=== PATIENT | male | born 1950 | race Caucasian/White ===

== ENCOUNTER 2021-02-11 15:08 | Outpatient (RCR) | payer BC, MEDICARE | END 2021-05-12 | disposition home or self-care (01) | LOC: ONC 15:08 | PROVIDERS: ATTEND Radiology Radiation Oncology | DX: C61 Malignant neoplasm of prostate (principal) | CPT/HCPCS: 99204 ==

== ENCOUNTER 2021-06-25 05:42 | Outpatient (CLI) | payer MEDICARE ==
[~2021-06-25] VITALS: Ht 180.3 cm; Wt 88.6 kg
[2021-06-25] MEDS ORDERED: AMIT100T2 PO (15:33)
[2021-06-25] MEDS ORDERED: TRZ50T PO (15:33)
[2021-06-25] MEDS ORDERED: ZINC50TA51 PO (15:33)
[2021-06-25] MEDS ORDERED: BICA50TA5 PO (15:33)
[2021-06-25] MEDS ORDERED: GUAI1TAB25 PO (15:33)
[2021-06-25] MEDS ORDERED: MELA5CAP PO (15:33)
[2021-06-25] MEDS ORDERED: ASPI-809 PO (15:33)
[2021-06-25] MEDS ORDERED: DIPH25CA79 PO (15:33)
== END 2021-06-25 16:08 | disposition home or self-care (01) ==
LOC: PREOP 05:42
PROVIDERS: ATTEND Specialist
DX: Z01.818 Encounter for other preprocedural examination (principal)

== ENCOUNTER 2021-07-09 11:46 | Day surgery (SDC) | payer BC, MEDICARE ==
[2021-07-09] VITALS (10 sets, daily range): BP systolic 120–149; BP diastolic 66–88
[~2021-07-09] VITALS: Ht 180.3 cm; Wt 88.6 kg
[~2021-07-09 11:46] MED LIST: AMIT100T2 PO; ASPI-809 PO; BICA50TA5 PO; DIPH25CA79 PO; GUAI1TAB25 PO; MELA5CAP PO; TRZ50T PO; ZINC50TA51 PO
--- NOTE | 2021-07-09 11:51 | Progress Note-Pre Operative ---
Pre-Operative Progress Note H&P Reviewed The H&P was reviewed, patient examined and no changes noted. Date Seen by Provider: Jul 09, 2021 Time Seen by Provider: 11:49 Date H&P Reviewed: Jul 09, 2021 Time H&P Reviewed: 11:49 Pre-Operative Diagnosis: Prostate cancer cT1c, PSA 8.49, [place] 7 (4+3) LAMINE OWENS MD Jul 09, 2021 11:50
--- NOTE | 2021-07-09 11:58 | Discharge Inst-Simple/Standard ---
Discharge Inst-Standard Reconcile Patient Problems Problems Reviewed?: Yes Discharge Medications New, Converted or Re-Newed RX: RX Given to Pt/Family Patient Instructions/Follow Up Plan of Care/Instructions/FU: 1) one month post implant scan at [facility] 08/06/21 at 10:30 a.m. 2) one month follow up with Dr. Martins 08/13/21 at 2:00 p.m. Activity as Tolerated: Yes Discharge Diet: No Restrictions Other Inst to Patient Please instruct patient on solis catheter care and removal of catheter at home on Wednesday07/14/21 in the morning. LAMINE OWENS MD Jul 09, 2021 11:58
[2021-07-09] MEDS ORDERED: ACET1TAB43 PO (12:08)
[2021-07-09] MEDS ORDERED: CIPR-226 PO (12:08)
[2021-07-09] MEDS ORDERED: LACTATED RINGERS 1,000 ML IV PRN (12:45)
[2021-07-09] MEDS ORDERED: BACITRACIN OINTMENT 28 GM TUBE ONE (13:50)
[2021-07-09] MEDS ORDERED: proPOfol 200 MG/20 ML (DIPRIVAN) VIAL IV ONE (13:55)
[2021-07-09] MEDS ORDERED: LIDOCAINE PF 2% 5 ML (XYLOCAINE) VIAL ONE (13:55)
[2021-07-09] MEDS ORDERED: SEVOFLURANE (ULTANE) 15 ML INHAL SOLN ONE ×2 (13:55→15:04)
[2021-07-09] MEDS ORDERED: fentaNYL INJ 100 MCG/2 ML AMP ONE (13:56)
[2021-07-09] MEDS ORDERED: ONDANSETRON 4 MG/2 ML (SDV) Z0FRAN ONE (13:56)
[2021-07-09] MEDS ORDERED: MIDAZOLAM 2 MG/2 ML (VERSED) VIAL ONE (13:56)
[2021-07-09] MEDS ORDERED: fentaNYL INJ 100 MCG/2 ML AMP IVP ONE (15:15)
[2021-07-09] MEDS ORDERED: ONDANSETRON 4 MG/2 ML (SDV) Z0FRAN IVP PRN (15:15)
[2021-07-09] MEDS ORDERED: morphine INJ 10 MG/ML 1ML (SYR OR VIAL) IVP ONE (15:15)
[2021-07-09] MEDS ORDERED: MEPERIDINE (DEMEROL) INJ 50 MG/ML IVP ONE (15:15)
--- NOTE | 2021-07-09 15:16 | Anesthesia-General Post-Op ---
General Patient Condition Mental Status/LOC: Same as Preop Cardiovascular: Satisfactory Nausea/Vomiting: Absent Respiratory: Satisfactory Pain: Controlled Complications: Absent Post Op Complications Complications None Follow Up Care/Instructions Patient Instructions None needed. Anesthesia/Patient Condition Patient Condition Patient is doing well, no complaints, stable vital signs, no apparent adverse anesthesia problems. No complications reported per nursing. RUSTY LEVIN CRNA Jul 09, 2021 15:16
--- NOTE | 2021-07-09 15:30 | Diagnostic Imaging Report ---
INDICATION: Fluoroscopy for brachytherapy. FINDINGS: Fluoroscopy was provided for Dr. Jimenez during prostate brachytherapy. 11 seconds of fluoroscopic time was utilized. A single image was obtained demonstrating radiation seed implants within the prostate gland. IMPRESSION: Fluoroscopy during brachytherapy. Dictated by: Dictated on workstation # [id number]
--- NOTE | 2021-07-09 16:08 | Progress Note-Post Operative ---
Post-Operative Progess Note Surgeon (s)/Piecer Up (s) Surgeon LAMINE OWENS MD Piecer Up: Stephany HAZEL MD Pre-Operative Diagnosis Prostate cancer cT1c, PSA 8.49, [place] 7 (4+3) Post-Operative Diagnosis Same as pre op Procedure & Operative Findings Date of Procedure 07/09/21 Procedure Performed/Findings (1) 100% Cesium 131 permanent prostate seed implant (2) Injection of biodegradable hydrogel prostate-rectal spacer utilizing the SpaceOAR system (3) Cystogram prostate volume 19.8 cc Anesthesia Type General Estimated Blood Loss Estimated blood loss (mL): Minimal Specimens/Packing Specimens Removed None Packing: N/A LAMINE OWENS MD Jul 09, 2021 16:08
== END 2021-07-09 17:33 | disposition home or self-care (01) ==
LOC: SDC 11:46
PROVIDERS: ATTEND Radiology Radiation Oncology
DX: C61 Malignant neoplasm of prostate (principal); G43.909 Migraine, unspecified, not intractable, without status migrainosus; Z79.899 Other long term (current) drug therapy
CPT/HCPCS: 55874; 76000; 76965; 77290; 77318; 77332; 77470; 77778; 87081; C1715 ×2; C1889; C2643

== ENCOUNTER 2021-08-06 10:06 | Outpatient (RCR) | payer MEDICARE ==
[~2021-08-06 10:06] MED LIST changes: +ACET1TAB43 PO; +CIPR-226 PO
== END 2021-09-10 | disposition home or self-care (01) ==
LOC: ONC 10:06
PROVIDERS: ATTEND Radiology Radiation Oncology
DX: Z51.0 Encounter for antineoplastic radiation therapy (principal); C61 Malignant neoplasm of prostate
CPT/HCPCS: 76873; 77290

== ENCOUNTER → 2021-09-22 | Outpatient (CLI) | payer MEDICARE | LOC: EDSTATUS 09-11 16:33 → ONC 11:15 | PROVIDERS: ATTEND Radiology Radiation Oncology | DX: C61 Malignant neoplasm of prostate (principal); Z98.890 Other specified postprocedural states; Z79.899 Other long term (current) drug therapy | CPT/HCPCS: 77295 ==

== ENCOUNTER 2022-01-08 09:49 | Outpatient (RCR) | payer MEDICARE | END 2022-01-26 | disposition home or self-care (01) | LOC: ONC 09:49 | PROVIDERS: ATTEND Radiology Radiation Oncology | DX: C61 Malignant neoplasm of prostate (principal); Z79.899 Other long term (current) drug therapy | CPT/HCPCS: 84153; G0463; 36415; 99213 ==